=== PATIENT | male | born 1995 | race Two or more races ===

== ENCOUNTER 2021-02-19 05:51 | Emergency (ER) | payer BC ==
[~2021-02-19] VITALS: Ht 193 cm; Wt 118.2 kg
[2021-02-19 06:06] VITALS: BP 139/91
[2021-02-19] MEDS ORDERED: dexamethasone 4mg tablet PO ONE (06:15)
[2021-02-19] MEDS ORDERED: ipratropium/albuterol 3ml nebule NEB ONE (06:15)
[2021-02-19] MEDS ORDERED: NO HOME MEDS (06:25)
[2021-02-19] MEDS ORDERED: ALBU8.5H17 INH (06:42)
[2021-02-19] MEDS ORDERED: AMOX500C2 PO (06:42)
== END 2021-02-19 07:16 | disposition home or self-care (01) ==
LOC: ER 05:52
DX: J45.909 Unspecified asthma, uncomplicated (principal); R11.10 Vomiting, unspecified; Z79.2 Long term (current) use of antibiotics
CPT/HCPCS: 99283

== ENCOUNTER 2021-10-28 14:06 | Emergency (ER) | payer BC ==
[~2021-10-28] VITALS: Ht 193 cm; Wt 122.7 kg
[~2021-10-28 14:06] MED LIST: ALBU8.5H17 INH; NO HOME MEDS
[2021-10-28 14:15] VITALS: BP 128/80
[2021-10-28] MEDS ORDERED: TETanus/Pertussis (Acell)/Diphther VAC/PF (Tdap-Adult) 0.5ml syringe IMVAC ONE (15:40)
== END 2021-10-28 15:57 | disposition home or self-care (01) ==
LOC: ER 14:06
DX: S61.001A Unspecified open wound of right thumb without damage to nail, initial encounter (principal); J45.909 Unspecified asthma, uncomplicated; Z72.89 Other problems related to lifestyle; Z79.899 Other long term (current) drug therapy; W26.8XXA Contact with other sharp object(s), not elsewhere classified, initial encounter; Y93.89 Activity, other specified; Y92.89 Other specified places as the place of occurrence of the external cause; Y99.8 Other external cause status
CPT/HCPCS: 90471; 90715; 99283